=== PATIENT | male | born 1945 | race Caucasian/White ===

== ENCOUNTER → 2016-10-20 | Outpatient (CLI) | payer OTHER ==
[~2016-10-20] MED LIST: ALLO300T PO; AMLO5TAB2 PO; ATEN100T PO; FURO-92 PO; GLIP10TA13 PO; LISI1TAB5 PO; PRAV20TA2 PO; SITA100T PO; WARF5TAB7 PO
== END | disposition home or self-care (01) ==
LOC: WOUND 08:11
PROVIDERS: ATTEND Internal Medicine
DX: E11.622 Type 2 diabetes mellitus with other skin ulcer (principal); L97.821 Non-pressure chronic ulcer of other part of left lower leg limited to breakdown of skin; L97.811 Non-pressure chronic ulcer of other part of right lower leg limited to breakdown of skin; E11.22 Type 2 diabetes mellitus with diabetic chronic kidney disease; I13.0 Hypertensive heart and chronic kidney disease with heart failure and stage 1 through stage 4 chronic kidney disease, or unspecified chronic kidney disease; N18.3 Chronic kidney disease, stage 3 (moderate); I50.20 Unspecified systolic (congestive) heart failure; I25.10 Atherosclerotic heart disease of native coronary artery without angina pectoris; E66.9 Obesity, unspecified; Z68.38 Body mass index [BMI] 38.0-38.9, adult; Z87.891 Personal history of nicotine dependence; Z72.89 Other problems related to lifestyle; F41.9 Anxiety disorder, unspecified; F32.9 Major depressive disorder, single episode, unspecified
CPT/HCPCS: 29581; 97597; G0463; WOU0463

== ENCOUNTER → 2016-10-27 | Outpatient (CLI) | payer OTHER | END | disposition home or self-care (01) | LOC: WOUND 08:57 | PROVIDERS: ATTEND Internal Medicine | DX: E11.622 Type 2 diabetes mellitus with other skin ulcer (principal); L97.821 Non-pressure chronic ulcer of other part of left lower leg limited to breakdown of skin; L97.811 Non-pressure chronic ulcer of other part of right lower leg limited to breakdown of skin; E11.22 Type 2 diabetes mellitus with diabetic chronic kidney disease; I13.0 Hypertensive heart and chronic kidney disease with heart failure and stage 1 through stage 4 chronic kidney disease, or unspecified chronic kidney disease; N18.3 Chronic kidney disease, stage 3 (moderate); I50.20 Unspecified systolic (congestive) heart failure; E66.9 Obesity, unspecified; Z68.38 Body mass index [BMI] 38.0-38.9, adult; Z87.891 Personal history of nicotine dependence; Z72.89 Other problems related to lifestyle; F41.9 Anxiety disorder, unspecified; I25.10 Atherosclerotic heart disease of native coronary artery without angina pectoris; F32.9 Major depressive disorder, single episode, unspecified | CPT/HCPCS: 97597 ==

== ENCOUNTER → 2016-11-10 | Outpatient (CLI) | payer OTHER | END | disposition home or self-care (01) | LOC: WOUND 08:38 | PROVIDERS: ATTEND Internal Medicine | DX: E11.621 Type 2 diabetes mellitus with foot ulcer (principal); L97.821 Non-pressure chronic ulcer of other part of left lower leg limited to breakdown of skin; L97.811 Non-pressure chronic ulcer of other part of right lower leg limited to breakdown of skin; E11.65 Type 2 diabetes mellitus with hyperglycemia; I48.91 Unspecified atrial fibrillation; E11.22 Type 2 diabetes mellitus with diabetic chronic kidney disease; I13.0 Hypertensive heart and chronic kidney disease with heart failure and stage 1 through stage 4 chronic kidney disease, or unspecified chronic kidney disease; N18.3 Chronic kidney disease, stage 3 (moderate); I50.20 Unspecified systolic (congestive) heart failure; I48.92 Unspecified atrial flutter; M10.9 Gout, unspecified; E66.9 Obesity, unspecified; I25.10 Atherosclerotic heart disease of native coronary artery without angina pectoris; F41.9 Anxiety disorder, unspecified; F32.9 Major depressive disorder, single episode, unspecified; Z87.891 Personal history of nicotine dependence; Z72.89 Other problems related to lifestyle; Z68.38 Body mass index [BMI] 38.0-38.9, adult | CPT/HCPCS: G0463; WOU0463 ==

== ENCOUNTER → 2016-12-23 | Outpatient (CLI) | payer OTHER | END | disposition home or self-care (01) | LOC: WOUND 09:28 | PROVIDERS: ATTEND Internal Medicine | DX: S81.802D Unspecified open wound, left lower leg, subsequent encounter (principal); S81.801D Unspecified open wound, right lower leg, subsequent encounter; E11.65 Type 2 diabetes mellitus with hyperglycemia; E11.22 Type 2 diabetes mellitus with diabetic chronic kidney disease; I12.9 Hypertensive chronic kidney disease with stage 1 through stage 4 chronic kidney disease, or unspecified chronic kidney disease; N18.3 Chronic kidney disease, stage 3 (moderate); E66.9 Obesity, unspecified; I25.10 Atherosclerotic heart disease of native coronary artery without angina pectoris; F32.9 Major depressive disorder, single episode, unspecified; I48.91 Unspecified atrial fibrillation; F41.9 Anxiety disorder, unspecified; Z87.891 Personal history of nicotine dependence; Z72.89 Other problems related to lifestyle; X58.XXXD Exposure to other specified factors, subsequent encounter | CPT/HCPCS: 97597; 97598 ==

== ENCOUNTER → 2016-12-30 | Outpatient (CLI) | payer OTHER ==
[~2016-12-30] MED LIST changes: +INSU300I SC; +SITA50TA PO
== END | disposition home or self-care (01) ==
LOC: WOUND 09:07
PROVIDERS: ATTEND Internal Medicine
DX: E11.622 Type 2 diabetes mellitus with other skin ulcer (principal); L97.821 Non-pressure chronic ulcer of other part of left lower leg limited to breakdown of skin; F41.9 Anxiety disorder, unspecified; I25.10 Atherosclerotic heart disease of native coronary artery without angina pectoris; E11.22 Type 2 diabetes mellitus with diabetic chronic kidney disease; I13.0 Hypertensive heart and chronic kidney disease with heart failure and stage 1 through stage 4 chronic kidney disease, or unspecified chronic kidney disease; N18.3 Chronic kidney disease, stage 3 (moderate); I50.20 Unspecified systolic (congestive) heart failure; F32.9 Major depressive disorder, single episode, unspecified; E66.9 Obesity, unspecified; Z72.89 Other problems related to lifestyle; I48.91 Unspecified atrial fibrillation; Z68.38 Body mass index [BMI] 38.0-38.9, adult
CPT/HCPCS: 29581; 97597

== ENCOUNTER → 2016-12-31 | Outpatient (CLI) | payer OTHER | END | disposition home or self-care (01) | LOC: RAD 10:50 | PROVIDERS: ATTEND Family Medicine | DX: I70.0 Atherosclerosis of aorta (principal); R06.00 Dyspnea, unspecified | CPT/HCPCS: 71020 ==

== ENCOUNTER → 2017-01-06 | Outpatient (CLI) | payer OTHER ==
[~2017-01-06] MED LIST changes: +POTA20TA14 PO
== END | disposition home or self-care (01) ==
LOC: WOUND 09:16
PROVIDERS: ATTEND Internal Medicine
DX: E11.622 Type 2 diabetes mellitus with other skin ulcer (principal); L97.821 Non-pressure chronic ulcer of other part of left lower leg limited to breakdown of skin; L97.811 Non-pressure chronic ulcer of other part of right lower leg limited to breakdown of skin; I25.2 Old myocardial infarction; E11.40 Type 2 diabetes mellitus with diabetic neuropathy, unspecified; E11.22 Type 2 diabetes mellitus with diabetic chronic kidney disease; I13.0 Hypertensive heart and chronic kidney disease with heart failure and stage 1 through stage 4 chronic kidney disease, or unspecified chronic kidney disease; N18.3 Chronic kidney disease, stage 3 (moderate); I50.20 Unspecified systolic (congestive) heart failure; I50.33 Acute on chronic diastolic (congestive) heart failure; I48.91 Unspecified atrial fibrillation; F41.9 Anxiety disorder, unspecified; I25.10 Atherosclerotic heart disease of native coronary artery without angina pectoris; F32.9 Major depressive disorder, single episode, unspecified; E66.9 Obesity, unspecified; Z68.38 Body mass index [BMI] 38.0-38.9, adult; Z72.89 Other problems related to lifestyle; Z79.01 Long term (current) use of anticoagulants; Z79.4 Long term (current) use of insulin; Z87.891 Personal history of nicotine dependence
CPT/HCPCS: 97597

== ENCOUNTER → 2017-01-19 | Outpatient (CLI) | payer OTHER | LOC: WOUND 09:38 | PROVIDERS: ATTEND Internal Medicine | DX: E11.622 Type 2 diabetes mellitus with other skin ulcer (principal); L97.821 Non-pressure chronic ulcer of other part of left lower leg limited to breakdown of skin; L97.811 Non-pressure chronic ulcer of other part of right lower leg limited to breakdown of skin; E11.65 Type 2 diabetes mellitus with hyperglycemia; I48.92 Unspecified atrial flutter; M10.9 Gout, unspecified; E66.9 Obesity, unspecified; E11.22 Type 2 diabetes mellitus with diabetic chronic kidney disease; I13.0 Hypertensive heart and chronic kidney disease with heart failure and stage 1 through stage 4 chronic kidney disease, or unspecified chronic kidney disease; N18.3 Chronic kidney disease, stage 3 (moderate); I50.33 Acute on chronic diastolic (congestive) heart failure; I25.10 Atherosclerotic heart disease of native coronary artery without angina pectoris; I25.2 Old myocardial infarction; E11.40 Type 2 diabetes mellitus with diabetic neuropathy, unspecified; I48.91 Unspecified atrial fibrillation; I50.20 Unspecified systolic (congestive) heart failure; I87.2 Venous insufficiency (chronic) (peripheral); F41.9 Anxiety disorder, unspecified; F32.9 Major depressive disorder, single episode, unspecified; Z87.891 Personal history of nicotine dependence; Z72.89 Other problems related to lifestyle; Z68.38 Body mass index [BMI] 38.0-38.9, adult; Z79.01 Long term (current) use of anticoagulants; Z79.4 Long term (current) use of insulin | CPT/HCPCS: G0463; WOU0463 ==

== ENCOUNTER 2017-03-15 12:24 | Inpatient (IN) | payer OTHER ==
[~2017-03-15] VITALS: Ht 182.9 cm; Wt 136.8 kg
[2017-03-15 13:19] LABS: HEMATOCRIT 49.6 % (39.2-51.8); HEMOGLOBIN 16.4 g/dL (13.7-18.0); WHITE BLOOD COUNT 8.7 x10^3/uL (3.4-10)
[2017-03-15 13:33] LABS: BLOOD UREA NITROGEN 49 mg/dL (7-18)
[2017-03-15 13:40] LABS: ASPARTATE AMINO TRANSFERASE 55 U/L (15-37); IS PT STATUS REG ER OR PRE ER? YES
[2017-03-15] MEDS ORDERED: WARF2.5T73 PO (15:02)
[2017-03-15] MEDS ORDERED: ALLO300T PO (15:02)
[2017-03-15] MEDS ORDERED: HYDROCHLOROTHIAZIDE 25 MG TABLET PO ONE (15:30)
[2017-03-15] MEDS ORDERED: FUROSEMIDE 40 MG/4 ML ONE (16:37)
[2017-03-15] MEDS ORDERED: POTASSIUM CHLORIDE 20 MEQ TAB.ER.PRT ONE (16:37)
[2017-03-15] MEDS: FUROSEMIDE 40 MG/4 ML IV SCH (16:38)
[2017-03-15] MEDS ORDERED: ONDANSETRON ODT 4 MG PO PRN (17:00)
[2017-03-15] MEDS ORDERED: ONDANSETRON 2MG/ML, 2ML IVPush PRN (17:00)
[2017-03-15] MEDS ORDERED: HYDROcodone/APAP 5/325 TABLET PO PRN (17:00)
[2017-03-15] MEDS ORDERED: LABETALOL 5MG/ML, 20ML IVPush PRN (17:00)
[2017-03-15] MEDS ORDERED: POLYETHYLENE GLYCOL 17 GM PACKET PO PRN (17:00)
[2017-03-15 17:37] VITALS: BP 148/91
[2017-03-15] MEDS: PRAVASTATIN 20 MG TABLET PO SCH (18:01)
[2017-03-15 19:04] LABS: POTASSIUM,URINE RANDOM 30 mmol/L
[2017-03-15 20:00] VITALS: BP 138/87
[2017-03-16 02:00] VITALS: BP 136/85
[2017-03-16 05:32] LABS: HEMATOCRIT 49.5 % (39.2-51.8); HEMOGLOBIN 16.2 g/dL (13.7-18.0); WHITE BLOOD COUNT 8.7 x10^3/uL (3.4-10)
[2017-03-16 05:52] LABS: ASPARTATE AMINO TRANSFERASE 44 U/L (15-37); BLOOD UREA NITROGEN 48 mg/dL (7-18)
[2017-03-16 07:56] VITALS: BP 129/81
[2017-03-16] MEDS: POTASSIUM CHLORIDE 20 MEQ TAB.ER.PRT PO SCH (08:07)
[2017-03-16] MEDS: FUROSEMIDE 40 MG/4 ML IV SCH ×3 (08:07→20:21)
[2017-03-16] MEDS: ATENOLOL 100 MG TABLET PO SCH (08:07)
[2017-03-16] MEDS: SENNA/DOCUSATE TABLET PO SCH (09:00)
[2017-03-16] MEDS ORDERED: INSULIN ASPART 100 UNITS/ML, PEN SQ-INSULIN ONE (13:00)
[2017-03-16 13:42] VITALS: BP 129/83
[2017-03-16] MEDS ORDERED: LIDOCAINE 2%, 20ML ONE (13:53)
[2017-03-16] MEDS: INSULIN ASPART 100 UNITS/ML, PEN SQ-INSULIN SCH ×2 (17:27→20:35)
[2017-03-16] MEDS ORDERED: WARFARIN 2 MG TABLET PO-COUM ONE (18:30)
[2017-03-16 19:04] VITALS: BP 124/77
[2017-03-16] MEDS: PRAVASTATIN 20 MG TABLET PO SCH (20:22)
[2017-03-16] MEDS: TEMAZEPAM 15 MG CAPSULE PO PRN (20:22)
[2017-03-17 02:20] VITALS: BP 149/90
[2017-03-17] MEDS: INSULIN ASPART 100 UNITS/ML, PEN SQ-INSULIN SCH ×4 (07:00→21:00)
[2017-03-17 07:35] LABS: HEMATOCRIT 47.6 % (39.2-51.8); HEMOGLOBIN 15.7 g/dL (13.7-18.0); WHITE BLOOD COUNT 8.4 x10^3/uL (3.4-10)
[2017-03-17 07:47] LABS: BLOOD UREA NITROGEN 46 mg/dL (7-18)
[2017-03-17 07:50] LABS: ASPARTATE AMINO TRANSFERASE 39 U/L (15-37)
[2017-03-17 08:00] VITALS: BP 123/70
[2017-03-17 08:06] LABS: FREE KAPPA LT CHAINS SERUM 35.6 mg/L (3.3-19.4); FREE LAMBDA LT CHAINS SERUM 28.6 mg/L (5.7-26.3); KAPPA/LAMBDA RATIO SERUM 1.24 (0.26-1.65)
[2017-03-17] MEDS: POTASSIUM CHLORIDE 20 MEQ TAB.ER.PRT PO SCH (09:22)
[2017-03-17] MEDS: FUROSEMIDE 40 MG/4 ML IV SCH ×2 (09:22→21:52)
[2017-03-17] MEDS: ATENOLOL 100 MG TABLET PO SCH (09:23)
[2017-03-17] MEDS: SENNA/DOCUSATE TABLET PO SCH (09:24)
[2017-03-17] MEDS ORDERED: FUROSEMIDE 40 MG/4 ML IV ONE (14:30)
[2017-03-17] MEDS ORDERED: BISACODYL 5 MG EC TABLET PO PRN (14:30)
[2017-03-17 14:58] VITALS: BP 113/69
[2017-03-17] MEDS ORDERED: WARFARIN 7.5 MG TABLET PO-COUM ONE (18:00)
[2017-03-17 20:28] VITALS: BP 129/78
[2017-03-17] MEDS: TEMAZEPAM 15 MG CAPSULE PO PRN (21:52)
[2017-03-17] MEDS: PRAVASTATIN 20 MG TABLET PO SCH (21:52)
[2017-03-18 02:35] VITALS: BP 131/86
[2017-03-18 04:48] LABS: HEMOGLOBIN 16.1 g/dL (13.7-18.0); WHITE BLOOD COUNT 8.6 x10^3/uL (3.4-10)
[2017-03-18 04:59] LABS: ASPARTATE AMINO TRANSFERASE 38 U/L (15-37); BLOOD UREA NITROGEN 52 mg/dL (7-18)
[2017-03-18] MEDS: CARVEDILOL 6.25 MG TABLET PO SCH ×2 (05:41→17:26)
[2017-03-18] MEDS: INSULIN ASPART 100 UNITS/ML, PEN SQ-INSULIN SCH ×4 (07:00→22:23)
[2017-03-18] MEDS: POTASSIUM CHLORIDE 20 MEQ TAB.ER.PRT PO SCH (07:53)
[2017-03-18 08:00] VITALS: BP 112/72
[2017-03-18] MEDS: FUROSEMIDE 40 MG/4 ML IV SCH ×2 (10:26→22:20)
[2017-03-18] MEDS: MAGNESIUM HYDROXIDE 8%, 30ML UDC PO SCH (10:26)
[2017-03-18] MEDS: SENNA/DOCUSATE TABLET PO SCH (10:26)
[2017-03-18 13:07] LABS: UR ALBUMIN 64.1 % (.); UR ALPHA-2-GLOBULIN 9.1 % (.); UR BETA GLOBULIN 12.9 % (.); UR GAMMA GLOBULIN 11.9 % (.); UR M-SPIKE % Not Observed % (Not Observed)
[2017-03-18 13:42] VITALS: BP 132/83
[2017-03-18] MEDS ORDERED: WARFARIN 7.5 MG TABLET PO-COUM ONE (18:00)
[2017-03-18 19:09] VITALS: BP 122/72
[2017-03-18] MEDS: PRAVASTATIN 20 MG TABLET PO SCH (22:20)
[2017-03-18] MEDS: ALLOPURINOL 300 MG TABLET PO SCH (22:20)
[2017-03-18] MEDS: TEMAZEPAM 15 MG CAPSULE PO PRN (22:39)
[2017-03-19 00:31] VITALS: BP 135/79
[2017-03-19] MEDS: CARVEDILOL 6.25 MG TABLET PO SCH ×2 (05:25→17:55)
[2017-03-19] MEDS: INSULIN ASPART 100 UNITS/ML, PEN SQ-INSULIN SCH ×4 (07:00→21:29)
[2017-03-19 07:35] VITALS: BP 136/81
[2017-03-19] MEDS: MAGNESIUM HYDROXIDE 8%, 30ML UDC PO SCH (09:00)
[2017-03-19] MEDS: FUROSEMIDE 40 MG/4 ML IV SCH ×2 (09:32→21:23)
[2017-03-19] MEDS: POTASSIUM CHLORIDE 20 MEQ TAB.ER.PRT PO SCH (09:33)
[2017-03-19] MEDS: SENNA/DOCUSATE TABLET PO SCH (09:33)
[2017-03-19 09:58] LABS: HEMATOCRIT 46.2 % (39.2-51.8); HEMOGLOBIN 15.2 g/dL (13.7-18.0); WHITE BLOOD COUNT 7.5 x10^3/uL (3.4-10)
[2017-03-19 10:03] LABS: ASPARTATE AMINO TRANSFERASE 41 U/L (15-37); BLOOD UREA NITROGEN 49 mg/dL (7-18)
[2017-03-19 13:40] VITALS: BP 122/76
[2017-03-19] MEDS ORDERED: WARFARIN 3 MG TABLET PO-COUM ONE (18:00)
[2017-03-19 19:15] VITALS: BP 125/72
[2017-03-19] MEDS: ALLOPURINOL 300 MG TABLET PO SCH (21:22)
[2017-03-19] MEDS: TEMAZEPAM 15 MG CAPSULE PO PRN (21:22)
[2017-03-19] MEDS: PRAVASTATIN 20 MG TABLET PO SCH (21:23)
[2017-03-20 02:20] VITALS: BP 122/68
[2017-03-20 05:23] LABS: HEMATOCRIT 45.6 % (39.2-51.8); HEMOGLOBIN 15.1 g/dL (13.7-18.0); WHITE BLOOD COUNT 7.8 x10^3/uL (3.4-10)
[2017-03-20 05:35] LABS: BLOOD UREA NITROGEN 52 mg/dL (7-18)
[2017-03-20 05:38] LABS: ASPARTATE AMINO TRANSFERASE 35 U/L (15-37)
[2017-03-20 05:40] VITALS: BP 119/65
[2017-03-20] MEDS: CARVEDILOL 6.25 MG TABLET PO SCH ×2 (05:44→17:27)
[2017-03-20] MEDS: INSULIN ASPART 100 UNITS/ML, PEN SQ-INSULIN SCH ×4 (07:00→21:30)
[2017-03-20 08:30] VITALS: BP_SYST 109; BP_SYST 126; BP_DIAS 64; BP_DIAS 90
[2017-03-20] MEDS: POTASSIUM CHLORIDE 20 MEQ TAB.ER.PRT PO SCH (08:45)
[2017-03-20] MEDS: FUROSEMIDE 40 MG/4 ML IV SCH ×2 (08:45→21:21)
[2017-03-20] MEDS: SENNA/DOCUSATE TABLET PO SCH (08:46)
[2017-03-20] MEDS: MAGNESIUM HYDROXIDE 8%, 30ML UDC PO SCH (08:46)
[2017-03-20 14:15] VITALS: BP 120/71
[2017-03-20] MEDS ORDERED: WARFARIN 2 MG TABLET PO-COUM ONE (18:00)
[2017-03-20 20:00] VITALS: BP 122/71
[2017-03-20] MEDS: PRAVASTATIN 20 MG TABLET PO SCH (21:21)
[2017-03-20] MEDS: TEMAZEPAM 15 MG CAPSULE PO PRN (21:21)
[2017-03-20] MEDS: ALLOPURINOL 300 MG TABLET PO SCH (21:21)
[2017-03-21 00:58] VITALS: BP 126/67
[2017-03-21 05:00] VITALS: BP 132/80
[2017-03-21] MEDS: CARVEDILOL 6.25 MG TABLET PO SCH (05:12)
[2017-03-21 06:11] LABS: BLOOD UREA NITROGEN 48 mg/dL (7-18)
[2017-03-21 08:34] VITALS: BP 110/67
[2017-03-21] MEDS: POTASSIUM CHLORIDE 20 MEQ TAB.ER.PRT PO SCH (08:40)
[2017-03-21] MEDS: MAGNESIUM HYDROXIDE 8%, 30ML UDC PO SCH (08:41)
[2017-03-21] MEDS: SENNA/DOCUSATE TABLET PO SCH (08:41)
[2017-03-21] MEDS: INSULIN ASPART 100 UNITS/ML, PEN SQ-INSULIN SCH ×2 (08:41→12:58)
[2017-03-21] MEDS ORDERED: MAGNESIUM HYDROXIDE 8%, 30ML UDC PO PRN (10:00)
[2017-03-21] MEDS ORDERED: FUROSEMIDE 80 MG TABLET PO ONE (10:30)
[2017-03-21] MEDS ORDERED: FUROSEMIDE 40 MG TABLET ONE (10:32)
[2017-03-21] MEDS ORDERED: CARV6.2512 PO (12:30)
[2017-03-21] MEDS ORDERED: POTA20PA25 PO (12:30)
[2017-03-21] MEDS ORDERED: FURO80TA3 PO (12:30)
[2017-03-21] MEDS ORDERED: FUROSEMIDE 80 MG TABLET PO SCH (17:00)
[2017-03-21] MEDS ORDERED: POTASSIUM CHLORIDE 20 MEQ TAB.ER.PRT PO SCH (17:00)
[2017-03-21] MEDS ORDERED: WARFARIN 2.5 MG TABLET PO-COUM ONE (18:00)
[2017-03-22 09:11] LABS: ALBUMIN 3.4 g/dL (2.9-4.4); ALPHA-1-GLOBULIN 0.4 g/dL (0.0-0.4); BETA GLOBULIN 1.1 g/dL (0.7-1.3); GAMMA GLOBULIN 1.3 g/dL (0.4-1.8); PROTEIN TOTAL 6.9 g/dL (6.0-8.5)
[2017-03-22 13:07] LABS: A/G RATIO 1.1 (0.7-1.7); ALBUMIN 3.3 g/dL (2.9-4.4); ALPHA-1-GLOBULIN 0.4 g/dL (0.0-0.4); BETA GLOBULIN 1.1 g/dL (0.7-1.3); GAMMA GLOBULIN 1.1 g/dL (0.4-1.8); IMMUNOGLOBULIN A 157 mg/dL (61-437); IMMUNOGLOBULIN G 1207 mg/dL (700-1600); IMMUNOGLOBULIN M 84 mg/dL (15-143); PROTEIN TOTAL 6.6 g/dL (6.0-8.5); UR PROTEIN 24HR 272 mg/24 hr (30-150)
== END 2017-03-21 14:42 | disposition home or self-care (01) | DRG 291 ==
LOC: ED 15:26 → EDIP 15:27 → ED 15:37 → 4EST 17:15
PROVIDERS: ADMIT Internal Medicine; ATTEND Internal Medicine
PROC: 0JB83ZX Excision of Abdomen Subcutaneous Tissue and Fascia, Percutaneous Approach, Diagnostic (ICD-10-PCS; principal; 2017-03-16)
DX: I13.0 Hypertensive heart and chronic kidney disease with heart failure and stage 1 through stage 4 chronic kidney disease, or unspecified chronic kidney disease (principal); I50.43 Acute on chronic combined systolic (congestive) and diastolic (congestive) heart failure; N17.9 Acute kidney failure, unspecified; E11.22 Type 2 diabetes mellitus with diabetic chronic kidney disease; E11.40 Type 2 diabetes mellitus with diabetic neuropathy, unspecified; I48.91 Unspecified atrial fibrillation; E11.65 Type 2 diabetes mellitus with hyperglycemia; I48.92 Unspecified atrial flutter; Z68.41 Body mass index [BMI] 40.0-44.9, adult; I27.29 Other secondary pulmonary hypertension; E66.01 Morbid (severe) obesity due to excess calories; N18.9 Chronic kidney disease, unspecified; E78.5 Hyperlipidemia, unspecified; F17.210 Nicotine dependence, cigarettes, uncomplicated; G47.33 Obstructive sleep apnea (adult) (pediatric); I27.81 Cor pulmonale (chronic); I34.0 Nonrheumatic mitral (valve) insufficiency; K76.1 Chronic passive congestion of liver; M10.9 Gout, unspecified; Z66 Do not resuscitate; Z79.01 Long term (current) use of anticoagulants; Z80.6 Family history of leukemia; Z82.49 Family history of ischemic heart disease and other diseases of the circulatory system
CPT/HCPCS: 20206; 36415; 71010; 76700; 76942; 80048; 80053; 80061; 81003; 82040; 82306; 82436; 82570; 82784; 82962; 83036; 83735; 83880; 83883; 84100; 84133; 84155; 84156; 84165; 84166; 84300; 84439; 84443; 84481; 84484; 84550; 85025; 85610; 86334; 88305; 93005; 93306; 96374; J1815; J1940; J3490

== ENCOUNTER 2018-04-07 04:08 | Emergency (ER) | payer OTHER ==
[~2018-04-07] VITALS: Ht 185.4 cm; Wt 124.0 kg
[~2018-04-07 04:08] MED LIST changes: +AMLO-150 PO; -AMLO5TAB2 PO; +CARV6.2512 PO; +FURO80TA3 PO; +POTA20PA25 PO; +WARF-36 PO; +WARF2.5T32 PO; -WARF5TAB7 PO
[2018-04-07 04:16] VITALS: BP 139/69
[2018-04-07] MEDS ORDERED: MICROFIBRILLAR COLLAGEN 1 GM TP ONE ×2 (04:57→05:00)
[2018-04-07 05:20] LABS: INTERNATIONAL NORMALIZED RATIO 3.72 (0.93-1.1); PROTHROMBIN TIME 37.5 Seconds (9.6-11.5)
[2018-04-07 05:22] LABS: BASOPHILS # (AUTO) 0.02 x10^3/uL (0-0.1); BASOPHILS % (AUTO) 0 % (0-1); EOSINOPHILS # (AUTO) 0.21 x10^3/uL (0-0.4); EOSINOPHILS % (AUTO) 3 % (1-7); LYMPHOCYTES # (AUTO) 1.34 x10^3/uL (1-3.4); LYMPHOCYTES % (AUTO) 17 % (22-44); MD NO; MEAN CORPUSCULAR HEMOGLOBIN 30.5 pg (27.5-34.5); MEAN CORPUSCULAR VOLUME 92.3 fL (81-97); MEAN PLATELET VOLUME 8.5 fL (7.4-10.4); MONOCYTES # (AUTO) 1.18 x10^3/uL (0.2-0.8); MONOCYTES % (AUTO) 15 % (2-9); NEUTROPHILS # (AUTO) 5.08 x10^3/uL (1.8-6.8); NEUTROPHILS % (AUTO) 65 % (42-75); PLATELET COUNT 161 x10^3/uL (130-400); RED BLOOD COUNT 4.66 x10^6/uL (4.38-5.82); RED CELL DISTRIBUTION WIDTH 18.2 % (9.4-14.8)
[2018-04-08] MEDS ORDERED: WARF2.5T32 PO (04:07)
== END 2018-04-07 06:40 | disposition home or self-care (01) ==
LOC: ED 04:15
DX: M96.841 Postprocedural hematoma of a musculoskeletal structure following other procedure (principal); I11.0 Hypertensive heart disease with heart failure; I50.9 Heart failure, unspecified; E11.9 Type 2 diabetes mellitus without complications; Z88.8 Allergy status to other drugs, medicaments and biological substances
CPT/HCPCS: 36415; 85025; 85610; 99283

== ENCOUNTER 2018-04-08 03:29 | Observation (INO) | payer OTHER ==
[2018-04-08] VITALS (10 sets, daily range): BP systolic 102–144; BP diastolic 55–87
[~2018-04-08] VITALS: Ht 182.9 cm; Wt 126.5 kg
--- NOTE | 2018-04-08 03:42 | NUR ---
PT PRESENTED WITH C/O BLEEDING TO RIGHT SIDE OF NECK, PT STATED HE HAD A SKIN B/X HERE 2 DAYS AGO. PT WAS SEEN HERE IN ED FOR SAME YESTERDAY. PT RESTING ON GURNEY, HAS TOWEL TIED TO RIGHT SIDE OF NECK, STATED " IF I REMOVE TOWEL I WILL BLEED ALL OVER, I'LL WAIT FOR THE DOCTOR". MONITORS APPLIED, AT BEDSIDE, CALL LIGHT WITHIN REACH.
[2018-04-08] MEDS ORDERED: WARF2.5T32 PO (04:07)
[2018-04-08] MEDS ORDERED: SILVER NITRATE STICK TP ONE (04:13)
[2018-04-08] MEDS ORDERED: MICROFIBRILLAR COLLAGEN 1 GM TP ONE (04:13)
--- NOTE | 2018-04-08 06:38 | NUR ---
BLOOD PRODUCT CONSENT SIGNED BY PT AND PLACED IN CHART.
[2018-04-08 06:46] LABS: BASOPHILS # (AUTO) 0.02 x10^3/uL (0-0.1); BASOPHILS % (AUTO) 0 % (0-1); EOSINOPHILS # (AUTO) 0.19 x10^3/uL (0-0.4); EOSINOPHILS % (AUTO) 2 % (1-7); LYMPHOCYTES % (AUTO) 16 % (22-44); MD NO; MEAN CORPUSCULAR HEMOGLOBIN 30.3 pg (27.5-34.5); MEAN CORPUSCULAR HGB CONC 33.2 g/dL (33.2-36.2); MEAN CORPUSCULAR VOLUME 91.2 fL (81-97); MEAN PLATELET VOLUME 8.4 fL (7.4-10.4); MONOCYTES # (AUTO) 0.97 x10^3/uL (0.2-0.8); MONOCYTES % (AUTO) 11 % (2-9); NEUTROPHILS # (AUTO) 6.17 x10^3/uL (1.8-6.8); NEUTROPHILS % (AUTO) 71 % (42-75); PLATELET COUNT 182 x10^3/uL (130-400); RED BLOOD COUNT 4.61 x10^6/uL (4.38-5.82); RED CELL DISTRIBUTION WIDTH 18.3 % (9.4-14.8)
[2018-04-08 06:55] LABS: INTERNATIONAL NORMALIZED RATIO 3.64 (0.93-1.1); PROTHROMBIN TIME 36.7 Seconds (9.6-11.5)
--- NOTE | 2018-04-08 07:00 | NUR ---
RECEIVED REPORT, VSS. WAITING FOR [facility] FROM BLOOD BANK. PT IS ALERT AND ORIENTED X 4 . PRESSURE BANDAGE IS IN PLACE AT RIGHT NECK. NO SEEPAGE NOTED AT THIS TIME.
--- NOTE | 2018-04-08 07:02 | NUR ---
REPORT GIVEN TO ANNIE GILLIS
[2018-04-08 07:21] LABS: ALBUMIN 3.7 g/dL (3.4-5.0); ANION GAP 8 mmol/L (5-15); CALCIUM 9.3 mg/dL (8.5-10.1); CHLORIDE 103 mmol/L (98-107); CREATININE 2.28 mg/dL (0.7-1.3)
--- NOTE | 2018-04-08 07:46 | NUR ---
[facility] CHECKED WITH [facility]. AUTHORIZATION WAS SIGNED BY PT AND IS ON THE CHART. VSS. FIRST UNIT OS ONFUSING WITHOUT PROBLEMS AT THIS TIME.
[2018-04-08] MEDS ORDERED: hydrALAzine 20 MG/ML, 1ML IVPush PRN (08:30)
[2018-04-08] MEDS ORDERED: DEXTROSE 50%, 50ML SYRINGE IVPush PRN (08:30)
[2018-04-08] MEDS ORDERED: LABETALOL 5MG/ML, 20ML IVPush PRN (08:30)
[2018-04-08] MEDS ORDERED: TEMAZEPAM 15 MG CAPSULE PO PRN (08:30)
[2018-04-08] MEDS ORDERED: PHYTONADIONE 10 MG/ML, 1ML IM ONE (08:30)
[2018-04-08] MEDS ORDERED: DOCUSATE 100 MG CAPSULE PO PRN (08:30)
[2018-04-08] MEDS ORDERED: DEXTROSE 4 GM TAB.CHEW PO PRN (08:30)
[2018-04-08] MEDS ORDERED: ONDANSETRON ODT 4 MG PO PRN (08:30)
[2018-04-08] MEDS ORDERED: ONDANSETRON 2MG/ML, 2ML IVPush PRN (08:30)
[2018-04-08] MEDS ORDERED: GLUCAGON 1 MG IM PRN (08:30)
--- NOTE | 2018-04-08 08:32 | NUR ---
FIRST UNIT OF FFP IS INFUSED, PT TO THE FLOOR AT THIS TIME. NO ADVERSE REACTIONS NOTED IN ED.
[2018-04-08] MEDS: SODIUM CHLORIDE FLUSH 10ML SYR IVF SCH ×2 (09:25→22:11)
[2018-04-08] MEDS: CARVEDILOL 6.25 MG TABLET PO SCH ×2 (09:25→18:00)
[2018-04-08] MEDS: INSULIN LISPRO 100 UNITS/ML, PEN SQ-INSULIN SCH ×3 (11:00→22:12)
[2018-04-08] MEDS ORDERED: BUPIVACAINE/PF-EPI 0.5% 1:200K ONE (14:01)
[2018-04-08] MEDS ORDERED: PROPOFOL 10 MG/ML, 20ML ONE (14:26)
[2018-04-08] MEDS ORDERED: FENTANYL PF 100 MCG/2ML ONE ×2 (14:26→17:20)
[2018-04-08] MEDS ORDERED: SUCCINYLCHOLINE 20 MG/ML, 10ML ONE (14:26)
[2018-04-08] MEDS ORDERED: MIDAZOLAM 1 MG/ML, 2ML ONE (14:26)
[2018-04-08] MEDS ORDERED: ONDANSETRON 2MG/ML, 2ML ONE (16:17)
[2018-04-08] MEDS ORDERED: THROMBIN 5,000 UNIT VIAL TP ONE (16:56)
[2018-04-08] MEDS ORDERED: ONDANSETRON ODT 8 MG PO PRN (17:00)
[2018-04-08] MEDS: FUROSEMIDE 80 MG TABLET PO SCH (17:00)
[2018-04-08] MEDS ORDERED: EPHEDRINE 50 MG/ML, 1ML IM PRN (17:00)
[2018-04-08] MEDS ORDERED: PROMETHAZINE 12.5 MG SUPP PR PRN (17:00)
[2018-04-08] MEDS ORDERED: EPHEDRINE 50 MG/ML, 1ML IVPush PRN (17:00)
[2018-04-08] MEDS ORDERED: MIDAZOLAM 1 MG/ML, 2ML IV PRN (17:00)
[2018-04-08] MEDS ORDERED: FENTANYL PF 100 MCG/2ML IV PRN (17:00)
[2018-04-08] MEDS ORDERED: MORPHINE SULFATE 4 MG/ML, 1ML IVPush PRN (17:00)
[2018-04-08] MEDS ORDERED: ONDANSETRON 2MG/ML, 2ML IV PRN (17:00)
[2018-04-08] MEDS ORDERED: OXYcodone 5 MG/5 ML ORAL.SOL UDC PO PRN (17:00)
[2018-04-08] MEDS ORDERED: LABETALOL 5MG/ML, 20ML IV PRN (17:00)
[2018-04-08] MEDS ORDERED: PROMETHAZINE 25 MG SUPP PR PRN (17:00)
[2018-04-08] MEDS ORDERED: OXYcodone 5 MG/5 ML ORAL.SOL UDC ONE (17:20)
[2018-04-08] MEDS: PRAVASTATIN 20 MG TABLET PO SCH (22:13)
[2018-04-08] MEDS: INSULIN GLARGINE 100 UNITS/ML, PEN SQ-INSULIN SCH (22:13)
[2018-04-09] VITALS: BP 129/82
[2018-04-09 04:57] VITALS: BP 125/78
[2018-04-09] MEDS: CARVEDILOL 6.25 MG TABLET PO SCH ×2 (04:58→17:08)
[2018-04-09 06:02] LABS: ALANINE AMINOTRANSFERASE 26 U/L (12-78); ALBUMIN 3.1 g/dL (3.4-5.0); ANION GAP 6 mmol/L (5-15); CHLORIDE 107 mmol/L (98-107); CREATININE 2.25 mg/dL (0.7-1.3)
[2018-04-09 06:03] LABS: ALKALINE PHOSPHATASE 301 U/L (45-117); BILIRUBIN,TOTAL 2.6 mg/dL (0.2-1.0); TOTAL PROTEIN 6.6 g/dL (6.4-8.2)
[2018-04-09 06:06] LABS: INTERNATIONAL NORMALIZED RATIO 1.84 (0.93-1.1); PROTHROMBIN TIME 19.1 Seconds (9.6-11.5)
[2018-04-09 06:09] LABS: BASOPHILS # (AUTO) 0.01 x10^3/uL (0-0.1); BASOPHILS % (AUTO) 0 % (0-1); EOSINOPHILS # (AUTO) 0.11 x10^3/uL (0-0.4); EOSINOPHILS % (AUTO) 2 % (1-7); LYMPHOCYTES # (AUTO) 0.72 x10^3/uL (1-3.4); LYMPHOCYTES % (AUTO) 12 % (22-44); MD NO; MEAN CORPUSCULAR HEMOGLOBIN 30.2 pg (27.5-34.5); MEAN CORPUSCULAR HGB CONC 32.7 g/dL (33.2-36.2); MEAN CORPUSCULAR VOLUME 92.3 fL (81-97); MEAN PLATELET VOLUME 8.7 fL (7.4-10.4); MONOCYTES # (AUTO) 0.36 x10^3/uL (0.2-0.8); MONOCYTES % (AUTO) 6 % (2-9); NEUTROPHILS # (AUTO) 5.05 x10^3/uL (1.8-6.8); NEUTROPHILS % (AUTO) 81 % (42-75); PLATELET COUNT 142 x10^3/uL (130-400); RED BLOOD COUNT 4.03 x10^6/uL (4.38-5.82); RED CELL DISTRIBUTION WIDTH 17.6 % (9.4-14.8)
[2018-04-09] MEDS: INSULIN LISPRO 100 UNITS/ML, PEN SQ-INSULIN SCH ×4 (08:11→20:40)
[2018-04-09] MEDS: FUROSEMIDE 80 MG TABLET PO SCH ×2 (08:11→17:08)
[2018-04-09] MEDS: SODIUM CHLORIDE FLUSH 10ML SYR IVF SCH ×2 (08:12→20:41)
[2018-04-09 09:59] VITALS: BP 115/72
[2018-04-09 13:00] VITALS: BP 102/65
[2018-04-09 17:07] VITALS: BP 111/70
[2018-04-09 18:31] VITALS: BP 104/67
[2018-04-09] MEDS: PRAVASTATIN 20 MG TABLET PO SCH (20:39)
[2018-04-09] MEDS: INSULIN GLARGINE 100 UNITS/ML, PEN SQ-INSULIN SCH (20:40)
[2018-04-09] MEDS: ACETAMINOPHEN 325 MG TABLET PO PRN (22:33)
[2018-04-10 02:00] VITALS: BP 104/72
[2018-04-10] MEDS: ACETAMINOPHEN 325 MG TABLET PO PRN ×3 (02:42→12:08)
[2018-04-10] MEDS: CARVEDILOL 6.25 MG TABLET PO SCH (05:56)
[2018-04-10 06:14] LABS: BASOPHILS # (AUTO) 0.01 x10^3/uL (0-0.1); BASOPHILS % (AUTO) 0 % (0-1); EOSINOPHILS # (AUTO) 0.16 x10^3/uL (0-0.4); EOSINOPHILS % (AUTO) 1 % (1-7); LYMPHOCYTES % (AUTO) 10 % (22-44); MD NO; MEAN CORPUSCULAR HEMOGLOBIN 30.7 pg (27.5-34.5); MEAN CORPUSCULAR HGB CONC 33.5 g/dL (33.2-36.2); MEAN CORPUSCULAR VOLUME 91.4 fL (81-97); MEAN PLATELET VOLUME 8.9 fL (7.4-10.4); MONOCYTES # (AUTO) 1.27 x10^3/uL (0.2-0.8); MONOCYTES % (AUTO) 11 % (2-9); NEUTROPHILS # (AUTO) 8.64 x10^3/uL (1.8-6.8); NEUTROPHILS % (AUTO) 77 % (42-75); PLATELET COUNT 145 x10^3/uL (130-400); RED BLOOD COUNT 4.26 x10^6/uL (4.38-5.82); RED CELL DISTRIBUTION WIDTH 18.3 % (9.4-14.8)
[2018-04-10 06:20] LABS: ANION GAP 9 mmol/L (5-15); CALCIUM 8.9 mg/dL (8.5-10.1); CHLORIDE 104 mmol/L (98-107); CREATININE 2.23 mg/dL (0.7-1.3)
[2018-04-10] MEDS: INSULIN LISPRO 100 UNITS/ML, PEN SQ-INSULIN SCH ×2 (07:00→12:11)
[2018-04-10 07:22] VITALS: BP 105/68
[2018-04-10] MEDS: FUROSEMIDE 80 MG TABLET PO SCH (08:33)
[2018-04-10] MEDS: SODIUM CHLORIDE FLUSH 10ML SYR IVF SCH (08:33)
[2018-04-10 12:46] VITALS: BP 104/68
== END 2018-04-10 14:17 | disposition home or self-care (01) ==
LOC: ED 03:58 → EDIP 07:34 → INTOOBSV 07:34 → 4NOR 08:42 → 4EST 10:10
PROVIDERS: ADMIT Internal Medicine; ATTEND Internal Medicine
DX: R22.1 Localized swelling, mass and lump, neck (principal); E11.22 Type 2 diabetes mellitus with diabetic chronic kidney disease; E78.5 Hyperlipidemia, unspecified; I13.0 Hypertensive heart and chronic kidney disease with heart failure and stage 1 through stage 4 chronic kidney disease, or unspecified chronic kidney disease; I48.91 Unspecified atrial fibrillation; I48.92 Unspecified atrial flutter; I50.9 Heart failure, unspecified; N18.3 Chronic kidney disease, stage 3 (moderate); M10.9 Gout, unspecified; Z79.01 Long term (current) use of anticoagulants; Z79.4 Long term (current) use of insulin
CPT/HCPCS: 21930; 36415; 36430; 80048; 80053; 82040; 82962; 83036; 85025; 85610; 86850; 86900; 88305; 93005; 96372; 99291; G0378; J0330; J1815; J2250; J2405; J2704; J3430; P9017; J3010